=== PATIENT | male | born 1995 | race Two or more races ===

== ENCOUNTER → 2022-08-04 | Outpatient (REF) | payer OTHER ==
[2022-08-04 14:09] LABS: CPK CREATINE PHOSPHOKINASE 166 U/L (46-171); IRON (FE) 91 UG/DL (65-175)
[2022-08-04 14:10] LABS: C REACTIVE PROTEIN QUANTITATIV < 0.40 MG/DL (<1.0); MAGNESIUM LEVEL 1.7 MG/DL (1.8-2.4)
[2022-08-04 14:11] LABS: TOTAL 25(OH) VITAMIN D 26.3 NG/ML (20.0-100.0)
[2022-08-04 14:12] LABS: VITAMIN B12 LEVEL 636 PG/ML (211-911)
== END ==
LOC: M SFHCRHEU 10:25
PROVIDERS: ATTEND Internal Medicine
DX: M79.10 Myalgia, unspecified site (principal); M54.9 Dorsalgia, unspecified; M25.50 Pain in unspecified joint
CPT/HCPCS: 81374; 82306; 82550; 82607; 83540; 83735; 84100; 85652; 86140; G0463

== ENCOUNTER → 2022-10-17 | Outpatient (CLI) | payer OTHER | LOC: M RAD 06:26 | PROVIDERS: ATTEND Internal Medicine | DX: M54.9 Dorsalgia, unspecified (principal); Q76.0 Spina bifida occulta ==